=== PATIENT | female | born 1970 | race Caucasian/White ===

== ENCOUNTER 2020-08-14 13:44 | Observation (INO) | payer OTHER ==
[~2020-08-14] VITALS: Ht 170.2 cm; Wt 122.5 kg
[2020-08-14 14:53] LABS: HEMOGLOBIN 13.1 gm/dl (12.3-15.3); RED BLOOD COUNT 3.85 M/UL (4.00-5.10)
[2020-08-14 15:26] LABS: BUN/CREATININE RATIO 13 (0-10)
[2020-08-15 02:00] LABS: HEMOGLOBIN 12.9 gm/dl (12.3-15.3); RED BLOOD COUNT 3.81 M/UL (4.00-5.10); WHITE BLOOD COUNT 4.9 K/UL (4.5-11.0)
[2020-08-15 02:52] LABS: BUN/CREATININE RATIO 15 (0-10)
--- NOTE | 2020-08-15 15:54 | NUR ---
PT STATES THAT THEY FELL THIS MORINING AND THEN CHANGED HER CLOTHS AND SHOWERED. THE PATIENT HAD NOT BEEN UP ALL MORNING TO MY KNOWLEGE AND THE SHOWER WAS NOT WET FROM USE. ASSESMENT IS NEGATIVE FOR ANY ACUTE INJURIES. NOTIFIED DR. GUZMAN.
[2020-08-16 05:32] LABS: HEMOGLOBIN 13.7 gm/dl (12.3-15.3); RED BLOOD COUNT 4.06 M/UL (4.00-5.10); WHITE BLOOD COUNT 4.9 K/UL (4.5-11.0)
[2020-08-16] MEDS ORDERED: QUETIAPINE FUMA25 MG PO (11:42)
[2020-08-16] MEDS ORDERED: LEVOTHYROXINE25 MCG PO (11:42)
[2020-08-16] MEDS ORDERED: MULTI-VITAMIN1 EACH PO (11:43)
== END 2020-08-16 18:54 | disposition short-term general hospital (02) ==
LOC: ER1 13:44 → MED SURG 4 16:25 → CDU 16:25 → MED SURG 4 18:24
PROVIDERS: Emergency Medicine; Physician Assistant Medical; ADMIT Internal Medicine
DX: F20.9 Schizophrenia, unspecified (principal); F31.9 Bipolar disorder, unspecified; F15.10 Other stimulant abuse, uncomplicated; M62.82 Rhabdomyolysis; R94.5 Abnormal results of liver function studies; R07.9 Chest pain, unspecified; I45.10 Unspecified right bundle-branch block; E11.65 Type 2 diabetes mellitus with hyperglycemia; R94.6 Abnormal results of thyroid function studies; D75.89 Other specified diseases of blood and blood-forming organs; D69.6 Thrombocytopenia, unspecified; M79.641 Pain in right hand; F17.210 Nicotine dependence, cigarettes, uncomplicated; I25.10 Atherosclerotic heart disease of native coronary artery without angina pectoris; E03.9 Hypothyroidism, unspecified; I10 Essential (primary) hypertension; I25.2 Old myocardial infarction; Z20.822 Contact with and (suspected) exposure to COVID-19; Z59.0 Homelessness; Z91.012 Allergy to eggs; Z91.018 Allergy to other foods; Z88.2 Allergy status to sulfonamides; Z91.040 Latex allergy status
CPT/HCPCS: 36415; 71045; 73130; 80048; 80053; 82550; 82553; 82962; 83036; 83735; 83874; 84439; 84443; 84484; 85025; 85027; 93005; 96372; 96374; 96375; 96376; 97162; 97166; 99285; G0378; J2060; J2405; U0002